=== PATIENT | female | born 1985 | race Caucasian/White ===

== ENCOUNTER 2017-06-13 13:10 | Emergency (ER) | payer OTHER ==
[~2017-06-13] VITALS: Ht 160 cm; Wt 68.5 kg
[2017-06-13] MEDS ORDERED: PRIMACARE SOFT1 EACH (13:21)
== END 2017-06-13 16:22 | disposition home or self-care (01) ==
LOC: ER 13:10
DX: O20.0 Threatened abortion (principal); Z34.81 Encounter for supervision of other normal pregnancy, first trimester

== ENCOUNTER 2017-06-14 09:57 | Emergency (ER) | payer OTHER ==
[~2017-06-14] VITALS: Ht 157.5 cm; Wt 68.0 kg
[~2017-06-14 09:57] MED LIST: PRIMACARE SOFT1 EACH
== END 2017-06-14 22:48 ==
LOC: ER 09:57
DX: O03.9 Complete or unspecified spontaneous abortion without complication (principal)

== ENCOUNTER 2022-12-23 09:54 | Outpatient (CLI) | payer OTHER | END 2022-12-23 10:03 | disposition home or self-care (01) | LOC: RAD 09:54 | PROVIDERS: ATTEND Chiropractor | DX: M99.03 Segmental and somatic dysfunction of lumbar region (principal); M54.50 Low back pain, unspecified; M99.04 Segmental and somatic dysfunction of sacral region; M99.02 Segmental and somatic dysfunction of thoracic region; M54.6 Pain in thoracic spine; M99.01 Segmental and somatic dysfunction of cervical region; M54.2 Cervicalgia; M62.830 Muscle spasm of back; R29.3 Abnormal posture; M25.511 Pain in right shoulder; N63.0 Unspecified lump in unspecified breast; N60.19 Diffuse cystic mastopathy of unspecified breast; Z80.9 Family history of malignant neoplasm, unspecified ==